=== PATIENT | female | born 1950 | race Caucasian/White ===

== ENCOUNTER 2022-09-14 15:15 | Emergency (ER) | payer MEDICARE, BC ==
[~2022-09-14] VITALS: Ht 157.5 cm; Wt 54.4 kg
[2022-09-14] MEDS ORDERED: MORPHINE SULFATE 4 MG/1 ML DISP.SYRIN ONE ×2 (15:29→17:36)
[2022-09-14] MEDS ORDERED: ONDANSETRON 4 MG/2 ML VIAL ONE (15:29)
[2022-09-14] MEDS ORDERED: MORPHINE SULFATE 2 MG/1 ML DISP.SYRIN IV ONE (15:30)
[2022-09-14] MEDS ORDERED: IV NORMAL SALINE 1000 ML BAG IV ONE (15:30)
[2022-09-14] MEDS ORDERED: ONDANSETRON 4 MG/2 ML VIAL IV ONE (15:30)
[2022-09-14 15:38] LABS: HEMATOCRIT 43.1 % (31.2-41.9); MEAN CORPUSCULAR HEMOGLOBIN 30.3 uug (24.7-32.8); MEAN CORPUSCULAR VOLUME 89.1 fL (75.5-95.3); PLATELET COUNT (AUTO) 204 K/uL (179-408)
[2022-09-14 16:00] LABS: ALANINE AMINOTRANSFERASE 17 U/L (14-59); ALKALINE PHOSPHATASE 82 U/L (50-136); ASPARTATE AMINOTRANSFERASE 18 U/L (15-37); BILIRUBIN,DIRECT 0.3 mg/dL (0.0-0.2); BILIRUBIN,TOTAL 1.5 mg/dL (0.2-1.0); CARBON DIOXIDE 19 mmol/L (21-32); CHLORIDE 101 mmol/L (98-107); GLUCOSE 128 mg/dL (74-106); LIPASE 85 U/L (73-393); UREA NITROGEN, BLOOD 14 mg/dL (7-18)
[2022-09-14 16:07] LABS: POTASSIUM 2.8 mmol/L (3.5-5.1)
--- NOTE | 2022-09-14 16:08 | NUR ---
Reported lactic acid level of 2.2 to .
[2022-09-14 16:51] LABS: *CLARITY,URINE CLEAR (CLEAR); *COLOR,URINE YELLOW (YELLOW); PH,URINE 7.5 (5.0-8.0); UGLUCOSE NEGATIVE (NEGATIVE)
[2022-09-14 16:52] LABS: *BILIRUBIN,URIN NEGATIVE (NEGATIVE); *BLOOD, URINE NEGATIVE (NEGATIVE); *KETONES,URINE 2+ (NEGATIVE); *UROBILINOGEN,URINE 0.2 E.U./dl (NORMAL); LEUKOCYTE ESTERASE ,URINE NEGATIVE (NEGATIVE); NITRITE, URINE NEGATIVE (NEGATIVE)
[2022-09-14] MEDS ORDERED: POTASSIUM CHLORIDE 20 MEQ TAB.PRT.SR ONE (16:58)
[2022-09-14] MEDS ORDERED: POTASSIUM CHLORIDE 100 ML ONE (16:58)
[2022-09-14] MEDS ORDERED: POTASSIUM CHLORIDE 20 MEQ TAB.PRT.SR PO ONE ×2 (17:00→19:30)
[2022-09-14] MEDS: POTASSIUM CHLORIDE 50 ML IV SCH ×2 (17:11→17:48)
[2022-09-14] MEDS ORDERED: MORPHINE SULFATE 4 MG/1 ML DISP.SYRIN IV ONE (17:45)
[2022-09-14] MEDS ORDERED: HYDROMORPHONE 1 MG/1 ML DISP.SYRIN IV ONE (18:15)
[2022-09-14] MEDS ORDERED: HYDROMORPHONE 1 MG/1 ML DISP.SYRIN ONE (18:20)
--- NOTE | 2022-09-14 18:45 | NUR ---
Spoke with Aniya from [facility]. Will fax over clinicals and face sheet. Addendum: 09/14/22 at 1917 by DCRUZ Phone# for [facility],
--- NOTE | 2022-09-14 18:55 | NUR ---
Spoke with Lulu at [facility]. Will fax over documents (face sheet, summary report)
--- NOTE | 2022-09-14 19:00 | NUR ---
Received pt. from Lexy RN, pt. VSS at this time, looking for hospital to transfer OB services
--- NOTE | 2022-09-14 19:13 | NUR ---
Spoke with May from [facility] who connected me with Dr. Dietz, OBGYN physician.
--- NOTE | 2022-09-14 19:48 | NUR ---
Called [facility] for OB-PUBLIC WORKS TECHNICIAN service, and informed us that they do not have OB-PUBLIC WORKS TECHNICIAN available medtronics technician.
--- NOTE | 2022-09-14 19:58 | NUR ---
Called [facility] and informed that [facility] is the one to contact for transfer services, called [facility] and they said that they do not have a OB-gem stone cutter director of operations support at this moment and only provide services for women.
[2022-09-14] MEDS ORDERED: MAGNESIUM SULFATE/D5W 100 ML ONE ×2 (20:03→21:16)
[2022-09-14] MEDS ORDERED: POTASSIUM CHLORIDE 20 MEQ POWDER PACKET ONE (20:04)
[2022-09-14] MEDS ORDERED: POTASSIUM CHLORIDE 10 MEQ TAB.PRT.SR ONE (20:04)
[2022-09-14] MEDS: MAGNESIUM SULFATE/D5W 100 ML IV SCH ×3 (20:24→23:25)
--- NOTE | 2022-09-14 20:51 | NUR ---
Sent documentation to [facility] [phone]
--- NOTE | 2022-09-14 21:01 | NUR ---
Called [facility], talked to Jolly, forwarded patient's facesheet and clinicals, per Jolly finance de[t. needs to review patient's information then will call back once they are ready. Per jolly finance dept. is close at this moment. Documentations were received per Jolly.
--- NOTE | 2022-09-14 21:34 | NUR ---
Called [facility] to transfer patient for OB-BONE CHAR PULLER SERVICES, and said that they do not have any bed availabitlity at this moment
--- NOTE | 2022-09-14 21:38 | NUR ---
Called [facility] and informed that they do not have bed availability, and no oil derrick operator net solutions architect on site.
--- NOTE | 2022-09-14 22:11 | NUR ---
Called [facility] for OB-COUNTER CLERK FARM EQUIPMENT PARTS services per Maria Guadalupe they are not accepting patients unless it is transplant or life threathening emergency services at this moment.
--- NOTE | 2022-09-14 22:49 | NUR ---
Called [facility] transfer center. spoke with Evie, was told the hospital is at capacity and there are 30 patients in the waiting list. Patient might not be accepted for 2 days depending on the waiting list
--- NOTE | 2022-09-14 22:55 | NUR ---
called [facility] transfer center, spoke with Louie. Was told hospital is at capacity and ER is on diversion.
--- NOTE | 2022-09-14 23:00 | NUR ---
Called [facility] transfer center, was told they don't have ORGANIZATIONAL RESEARCH CONSULTANT specialty. Was told to try calling [facility] and [facility]
--- NOTE | 2022-09-14 23:16 | NUR ---
Called [facility], was on hold for 15 mins. left a voice message.
--- NOTE | 2022-09-14 23:24 | NUR ---
Called [facility]. Spoke with Neisha. Massage Therapy Instructor restoration silversmith will call back
--- NOTE | 2022-09-14 23:27 | NUR ---
[facility] [phone]
[2022-09-15] MEDS ORDERED: HYDROCODONE/APAP 5-325MG TABLET ONE (00:14)
[2022-09-15] MEDS ORDERED: HYDROCODONE/APAP 5-325MG TABLET PO ONE (00:15)
--- NOTE | 2022-09-15 00:59 | NUR ---
Patient discharged to home in stable condition. Written and verbal after care instructions given. Patient verbalizes understanding of instructions. Stressed follow up or return to ER for worsening s/s.
[2022-09-15 01:00] VITALS: BP 122/80
--- NOTE | 2022-09-15 01:00 | NUR ---
Pt. left AMA signed
[2022-09-15] MEDS ORDERED: HYDR-4209 PO (01:02)
== END 2022-09-15 01:04 | disposition left against medical advice (07) ==
LOC: ER 15:15
DX: R19.00 Intra-abdominal and pelvic swelling, mass and lump, unspecified site (principal); E87.6 Hypokalemia; D25.9 Leiomyoma of uterus, unspecified; R33.9 Retention of urine, unspecified; E87.20 Acidosis, unspecified; Z20.822 Contact with and (suspected) exposure to COVID-19; R06.4 Hyperventilation; Z53.29 Procedure and treatment not carried out because of patient's decision for other reasons
CPT/HCPCS: 99291; 74176; 76856; 87426; 80076; 80048; 81003; 83690; 83735; 85025; 84484; 36415; 71045; 83605 ×2; 93005; 51702; 96361; 96365; 96366; 96375; 96376; J3475 ×2; J2405; J3480; J1170; J2270 ×2; J7040; A4663